=== PATIENT | male | born 1965 | race Caucasian/White ===

== ENCOUNTER 2017-07-30 10:45 | Emergency (ER) | payer OTHER ==
[~2017-07-30] VITALS: Ht 182.9 cm; Wt 93.0 kg
[2017-07-30 10:49] VITALS: TEMP 36.7; Ht 182.9 cm; Wt 93.0 kg
[2017-07-30] MEDS ORDERED: KETOROLAC TROMETHAMINE 30 MG/ML VIAL IV STA (11:00)
[2017-07-30] MEDS ORDERED: SODIUM CHLORIDE 0.9% 1000ML 1,000 ML IV STA (11:00)
[2017-07-30] MEDS ORDERED: ONDANSETRON INJ 2 MG/ML 2 ML VIAL IV STA (11:00)
[2017-07-30] MEDS: MoRPHine SULFATE 4 MG/ML 1 ML CARP\\VIAL IV PRN ×2 (11:14→13:12)
[2017-07-30 12:08] LABS: BASO % 0.3 %; BASO ABS # 0.04 K/uL (0-0.2); EOS % 1.9 %; EOS ABS # 0.26 K/uL (0-0.5); HEMATOCRIT 47.5 % (42-52); HEMOGLOBIN 16.9 g/dL (14.0-18.0); IG# 0.04 K/uL (0.00-0.02); LYMPH % 21.8 %; LYMPH ABS # 3.02 K/uL (1.2-3.4); MEAN CELL VOLUME 87.8 fL (80-100); MEAN CORPUSCULAR HEMOGLOBIN 31.2 pg (25-34); MEAN CORPUSCULAR HGB CONC 35.6 g/dl (32-36); MEAN PLATELET VOLUME 10.1 fL (7.4-10.4); MONO % 7.3 %; MONO ABS # 1.01 K/uL (0.11-0.59); NEUT % 68.4 %; NEUT ABS # 9.48 K/uL (1.4-6.5); PLATELET COUNT 244 K/uL (130-400); RED CELL DISTRIBUTION WIDTH CV 13.3 % (11.5-14.5); RED CELL DISTRIBUTION WIDTH SD 42.6 fL (36.4-46.3); WHITE BLOOD COUNT 13.85 K/uL (4.8-10.8)
[2017-07-30] MEDS ORDERED: METH1TAB12 PO (12:15)
--- NOTE | 2017-07-30 12:18 | DIAGNOSTIC IMAGING REPORT ---
CT OF THE ABDOMEN AND PELVIS WITHOUT CONTRAST, STONE PROTOCOL CLINICAL HISTORY: Left lower quadrant/left flank pain. Ruptured hernia. COMPARISON STUDY: None. TECHNIQUE: Helical axial images of the abdomen and pelvis were obtained without IV or oral contrast according to renal stone protocol. A dose lowering technique was utilized adhering to the principles of ALARA. FINDINGS: Fatty infiltration of the liver is noted which is geographic in distribution. Size of the spleen is normal. There are a few splenules. The adrenal glands and pancreas are normal. There is no biliary or pancreatic ductal dilatation. Evaluation of the abdomen and pelvis is suboptimal on this unenhanced examination. No renal, ureteral or bladder calculi are noted. Note is made of a 1.2 cm lesion arising from the lower pole of the left kidney which is intermediate attenuation on this unenhanced exam. This is indeterminate. The infrarenal abdominal aorta is ectatic, measuring 2.4 cm in caliber. No aneurysmal dilatation. There is extensive atherosclerotic plaque of the abdominal aorta. There is no evidence for a bowel obstruction. There is colonic diverticulosis. There is an inflamed diverticulum of the distal descending colon with moderate adjacent pericolonic infiltration located anterior to the distal descending colon. There is a small amount of associated fluid. There is mild colonic wall thickening. There is no free air or abscess. A moderate-sized fat-containing left inguinal hernia is present. No suspicious osseous lesions are present. There is no lymphadenopathy. IMPRESSION: 1. Acute diverticulitis of the distal descending colon. Moderate pericolonic infiltration. No free air or abscess. 2. 1.2 cm lesion arising from the lower pole of the left kidney which measures greater than water attenuation. This is indeterminate and could reflect a solid renal lesion or complex cyst. A follow-up nonemergent renal protocol CT is recommended. 3. No urinary calculi or hydronephrosis. 4. Fat-containing left inguinal hernia. 5. Fatty liver. Electronically signed by: Enoc Irving M.D. 07/30/2017 12:16 PM Dictated Date/Time: 07/30/2017 12:08 PM
[2017-07-30 12:35] LABS: ALBUMIN 3.6 gm/dl (3.4-5.0); CALCIUM 9.6 mg/dl (8.5-10.1); CREATININE 0.96 mg/dl (0.60-1.40); TOTAL PROTEIN 7.3 gm/dl (6.4-8.2)
[2017-07-30] MEDS ORDERED: PIPERACILLIN/TAZOBACTAM 4.5 GM/100ML D5W IV STA (12:42)
[2017-07-30] MEDS ORDERED: CIPR-255 PO (13:18)
[2017-07-30] MEDS ORDERED: HYDR-3983 PO (13:18)
[2017-07-30] MEDS ORDERED: METR-163 PO (13:18)
--- NOTE | 2017-07-30 13:19 | EMERGENCY ROOM VISIT NOTE ---
History Report prepared by Lina: Alfredo Colon Under the Supervision of: Dr. Hasmukh Lord D.O. First contact with patient: 10:52 Chief Complaint: ABDOMINAL PAIN Stated Complaint: ABDOMINAL PAIN/RUPTURED HERNIA History of Present Illness The patient is a 52 year old male who presents to the Emergency Room with complaints of continuous LLQ pain that began 2 days ago. Patient complains of diarrhea. He denies nausea and vomiting. He states that there is a tennis ball sized mass by his LLQ. Source of History: patient, spouse/significant other Onset: 2 days ago Position: abdomen (LLQ) Timing: constant Modifying Factors (Worsening): movement Associated Symptoms: + abdominal pain, + diarrhea, No nausea, No vomiting Review of Systems See HPI for pertinent positives & negatives. A total of 10 systems reviewed and were otherwise negative. Social History Smoking Status: Current Every Day Smoker Alcohol Use: heavy Marital Status: Housing Status: lives with significant other Current/Historical Medications Scheduled Ciprofloxacin Hcl (Cipro), 500 MG PO BID Methylphenidate Hcl (Ritalin), 40 MG PO BID Metronidazole (Flagyl), 500 MG PO BID Scheduled PRN Hydrocodone/Acetaminophen 7.5MG/325MG ([place] 7.5MG/325MG), 1 TAB PO Q6 PRN for Pain Allergies Coded Allergies: No Known Allergies (Unverified , 07/30/17) Physical Exam Vital Signs Date Time Temp Pulse Resp B/P (MAP) Pulse Ox O2 Delivery O2 Flow Rate FiO2 07/30/17 13:47 77 18 140/92 97 Room Air 07/30/17 12:43 74 18 145/95 95 Room Air 07/30/17 10:49 36.7 86 20 144/95 95 Room Air Physical Exam CONSTITUTIONAL/VITAL SIGNS: Reviewed / noted above. GENERAL: Non-toxic in appearance. INTEGUMENTARY: Warm, dry, and [place]. HEAD: Normocephalic. EYES: without scleral icterus or trauma. ENT/OROPHARYNX: clear and moist. LYMPHADENOPATHY/NECK: Is supple without lymphadenopathy or meningismus. RESPIRATORY: Lungs clear and equal. CARDIOVASCULAR: Regular rate and rhythm. GI/ABDOMEN: Soft and tender in LLQ. No obvious palpable hernias in the abdomen or scrotum. No organomegaly or pulsatile mass. No rebound or guarding. Normal bowel sounds. EXTREMITIES: Warm and well perfused. BACK: No CVA tenderness. NEUROLOGICAL: Intact without focal deficits. PSYCHIATRIC: normal affect. MUSCULOSKELETAL: Normally developed with good muscle tone. Medical Decision & Procedures ER Provider Diagnostic Interpretation: Radiology results as stated below per my review and radiologist interpretation: CT OF THE ABDOMEN AND PELVIS WITHOUT CONTRAST, STONE PROTOCOL CLINICAL HISTORY: Left lower quadrant/left flank pain. Ruptured hernia. COMPARISON STUDY: None. TECHNIQUE: Helical axial images of the abdomen and pelvis were obtained without IV or oral contrast according to renal stone protocol. A dose lowering technique was utilized adhering to the principles of ALARA. FINDINGS: Fatty infiltration of the liver is noted which is geographic in distribution. Size of the spleen is normal. There are a few splenules. The adrenal glands and pancreas are normal. There is no biliary or pancreatic ductal dilatation. Evaluation of the abdomen and pelvis is suboptimal on this unenhanced examination. No renal, ureteral or bladder calculi are noted. Note is made of a 1.2 cm lesion arising from the lower pole of the left kidney which is intermediate attenuation on this unenhanced exam. This is indeterminate. The infrarenal abdominal aorta is ectatic, measuring 2.4 cm in caliber. No aneurysmal dilatation. There is extensive atherosclerotic plaque of the abdominal aorta. There is no evidence for a bowel obstruction. There is colonic diverticulosis. There is an inflamed diverticulum of the distal descending colon with moderate adjacent pericolonic infiltration located anterior to the distal descending colon. There is a small amount of associated fluid. There is mild colonic wall thickening. There is no free air or abscess. A moderate-sized fat-containing left inguinal hernia is present. No suspicious osseous lesions are present. There is no lymphadenopathy. IMPRESSION: 1. Acute diverticulitis of the distal descending colon. Moderate pericolonic infiltration. No free air or abscess. 2. 1.2 cm lesion arising from the lower pole of the left kidney which measures greater than water attenuation. This is indeterminate and could reflect a solid renal lesion or complex cyst. A follow-up nonemergent renal protocol CT is recommended. 3. No urinary calculi or hydronephrosis. 4. Fat-containing left inguinal hernia. 5. Fatty liver. Electronically signed by: Enoc Irving M.D. 07/30/2017 12:16 PM Dictated Date/Time: 07/30/2017 12:08 PM Laboratory Results 07/30/17 11:23 Red Blood Count 5.41, Mean Corpuscular Volume 87.8, Mean Corpuscular Hemoglobin 31.2, Mean Corpuscular Hemoglobin Concent 35.6, Mean Platelet Volume 10.1, Neutrophils (%) (Auto) 68.4, Lymphocytes (%) (Auto) 21.8, Monocytes (%) (Auto) 7.3, Eosinophils (%) (Auto) 1.9, Basophils (%) (Auto) 0.3, Neutrophils # (Auto) 9.48, Lymphocytes # (Auto) 3.02, Monocytes # (Auto) 1.01, Eosinophils # (Auto) 0.26, Basophils # (Auto) 0.04 07/30/17 11:23 Test 07/30/17 11:23 07/30/17 13:01 White Blood Count 13.85 K/uL (4.8-10.8) Red Blood Count 5.41 M/uL (4.7-6.1) Hemoglobin 16.9 g/dL (14.0-18.0) Hematocrit 47.5 % (42-52) Mean Corpuscular Volume 87.8 fL (80-100) Mean Corpuscular Hemoglobin 31.2 pg (25-34) Mean Corpuscular Hemoglobin Concent 35.6 g/dl (32-36) Platelet Count 244 K/uL (130-400) Mean Platelet Volume 10.1 fL (7.4-10.4) Neutrophils (%) (Auto) 68.4 % Lymphocytes (%) (Auto) 21.8 % Monocytes (%) (Auto) 7.3 % Eosinophils (%) (Auto) 1.9 % Basophils (%) (Auto) 0.3 % Neutrophils # (Auto) 9.48 K/uL (1.4-6.5) Lymphocytes # (Auto) 3.02 K/uL (1.2-3.4) Monocytes # (Auto) 1.01 K/uL (0.11-0.59) Eosinophils # (Auto) 0.26 K/uL (0-0.5) Basophils # (Auto) 0.04 K/uL (0-0.2) RDW Standard Deviation 42.6 fL (36.4-46.3) RDW Coefficient of Variation 13.3 % (11.5-14.5) Immature Granulocyte % (Auto) 0.3 % Immature Granulocyte # (Auto) 0.04 K/uL (0.00-0.02) Anion Gap 9.0 mmol/L (3-11) Est Creatinine Clear Calc Drug Dose 98.8 ml/min Estimated GFR () 104.9 Estimated GFR (Non- 90.5 BUN/Creatinine Ratio 11.5 (10-20) Calcium Level 9.6 mg/dl (8.5-10.1) Total Bilirubin 0.7 mg/dl (0.2-1) Alanine Aminotransferase (ALT/SGPT) 55 U/L (12-78) Alkaline Phosphatase 100 U/L (45-117) Total Protein 7.3 gm/dl (6.4-8.2) Albumin 3.6 gm/dl (3.4-5.0) Lipase 157 U/L (73-393) Direct Bilirubin mg/dl (0-0.2) Aspartate Amino Transf (AST/SGOT) U/L (15-37) Laboratory results as stated above per my review. Medications Administered Medications (Trade) Dose Ordered Sig/Shari Route Start Time Stop Time Status Last Admin Dose Admin Sodium Chloride 1,000 ml @ 999 mls/hr Q1H1M STAT IV 07/30/17 11:00 07/30/17 12:00 DC 07/30/17 11:16 999 MLS/HR Ondansetron HCl (Zofran Inj) 4 mg NOW STAT IV 07/30/17 11:00 07/30/17 11:02 DC 07/30/17 11:15 4 MG Ketorolac Tromethamine (Toradol Inj) 30 mg NOW STAT IV 07/30/17 11:00 07/30/17 11:02 DC 07/30/17 11:15 30 MG Morphine Sulfate (MoRPHine SULFATE INJ) 4 mg Q15M PRN IV 07/30/17 11:00 07/30/17 14:48 DC 07/30/17 13:12 4 MG Piperacillin Sod/ Tazobactam Sod (Zosyn Iv) 4.5 gm NOW STAT IV 07/30/17 12:42 07/30/17 12:43 DC 07/30/17 13:13 4.5 GM ECG Indication: abdominal pain Rate (beats per minute): 66 Rhythm: normal sinus Change: Patient's EKG evaluated by me. ED Course 1052: Previous medical records were reviewed. The patient was evaluated in room B5. A complete history and physical examination was performed. 1100: Morphine Sulfate Inj 4mg IV, Toradol Inj 30 mg IV, Zofran Inj 4 mg IV, Sodium Chloride 1000 ml @ 999 mls/hr IV. 1242: Zosyn IV 4.5 gm IV. 1251: I checked on the patient and he is doing well. 1320: On reevaluation, the patient is doing well. I discussed the results and findings with the patient. He verbalized agreement of the treatment plan. He was discharged home. Medical Decision Differential considered: pancreatitis, hepatitis, or acute cholecystitis, AAA, UTI, pyelonephritis, kidney stones, appendicitis, diverticulitis, shingles, bowel obstruction mesenteric ischemia, intussusception,hernia, testicular torsion. This is a 52-year-old male who presents to the ED with a chief complaint of left lower quadrant abdominal pain started 2 days ago. The patient reports increased pain with movement and tenderness to touching the area. He did have some diarrhea over the past couple of days but no nausea or vomiting. Exam reveals tenderness in the left lower quadrant. A CT scan reveals acute diverticulitis with moderate pericolonic infiltration. White count was 13.8. Complete metabolic panel was normal. The patient was given IV Zosyn. He was given IV fluids and IV Toradol, IV morphine and IV Zofran. He was given IV Zosyn as well as by mouth Cipro and Flagyl. The patient was offered admission because of his moderate changes on CT scan as well as his significant tenderness on palpation of the left lower quadrant. He decided that he wanted to go home and try oral antibiotics. He was discharged on Cipro and Flagyl. Prescription also was given for [place]. He was told to use a liquid diet over the next several days. Medication Reconcilliation Current Medication List: was personally reviewed by me Blood Pressure Screening Patient's blood pressure: Elevated blood pressure Blood pressure disposition: Elevated BP felt to be situational Impression Primary Impression: Diverticulitis Scribe Attestation The scribe's documentation has been prepared under my direction and personally reviewed by me in its entirety. I confirm that the note above accurately reflects all work, treatment, procedures, and medical decision making performed by me. Departure Information Dispostion Home / Self-Care Prescriptions Metronidazole (Flagyl) 500 Mg Tab 500 MG PO BID, #20 TAB Prov: Hasmukh Lord D.O. 07/30/17 Ciprofloxacin Hcl (CIPRO) 500 Mg Tab 500 MG PO BID, #20 TAB Prov: Hasmukh Lord D.O. 07/30/17 Hydrocodone/Acetaminophen 7.5MG/325MG ([place] 7.5MG/325MG) Tab 1 TAB PO Q6 Y for Pain, #20 TAB Prov: Hasmukh Lord D.O. 07/30/17 Referrals Karl Delgado D.O. (PCP) Patient Instructions ED Diverticulitis, [facility] Additional Instructions Liquid diet for the next several days or until pain improves. Cipro and Flagyl as prescribed for infection. [place] as prescribed for pain. Return to the emergency department for fevers, increasing pain, vomiting or other concerning/worsening symptoms. Follow-up with your doctor for further care and evaluation in 1-2 days. Return to the emergency department for worsening or new symptoms or any concerns. You have been examined and treated today on an emergency basis only. This is not a substitute for, or an effort to provide, complete comprehensive medical care. It is impossible to recognize and treat all injuries or illnesses in a single emergency department visit. It is therefore important that you follow up closely with your doctor. Call as soon as possible for an appointment.
[2017-07-30 13:47] VITALS: BP 140/92; PULSE 77; O2SAT 97
== END 2017-07-30 14:20 | disposition home or self-care (01) ==
LOC: C.EDB 10:49
DX: K57.32 Diverticulitis of large intestine without perforation or abscess without bleeding (principal); R19.7 Diarrhea, unspecified; Z79.899 Other long term (current) drug therapy; F17.200 Nicotine dependence, unspecified, uncomplicated